=== PATIENT | male | born 1980 | race African-American/Black ===

== ENCOUNTER 2018-05-08 10:10 | Emergency (ER) | payer OTHER ==
[~2018-05-08] VITALS: Ht 182.9 cm; Wt 83.5 kg
--- NOTE | 2018-05-08 10:50 | RADIOLOGY REPORT ---
EXAMINATION: XR CHEST CLINICAL INFORMATION: Chest pain COMPARISON: 05/12/2016 TECHNIQUE: 2 views of the chest were obtained. FINDINGS: No significant abnormality is noted involving the heart, lungs, mediastinum, bony thorax or soft tissues. IMPRESSION: Unremarkable examination.
--- NOTE | 2018-05-08 10:55 | ED GENERAL ADULT ---
History of Present Illness General Chief Complaint: Chest Pain Stated Complaint: BIBA LEFT SIDED CHEST PAIN Source: patient Exam Limitations: no limitations Allergies Coded Allergies: No Known Allergies (05/08/18) Triage Note: 37 YO MALE BIBA FROM WORK FOR EVAL OF CHEST PRESSURE ON THE L SIDE. DENIES RADIATION OF PAIN. DENIES SOB, STATES PAIN IS WORSE WITH INSPIRATION. EKG IN PROGRESS Triage Nurses Notes Reviewed? yes HPI: Patient is a 37-year-old male with a past medical history of unprovoked pulmonary embolism and myocardial infarct in April 2016 for which he did not complete anticoagulation therapy. Patient is presented to the emergency department today with left-sided rib and chest pain lasting for approximately 1 hour, describes pain as "it is on the inside", has not has this type of pain before. Patient states he was thrown bottles, cans while at work which includes heavy lifting of up to 40 pounds when the pain started this morning, describes the pain as 10 out of 10, is sharp in nature and nonradiating and it worsens with deep respirations. States she has not tried anything for alleviation of pain. Denies diaphoresis, palpitations, dizziness, confusion. Patient states he is a current smoker smokes approximately 3 cigarettes per day, denies leg swelling or pain, history of rib fractures. Of note patient states he was seen last week at [facility] for having blood in his urine and semen, states workup there was negative including cystoscopy which was normal. (Marcelo COPELAND,[facility]) Vital Signs & Intake/Output Vital Signs & Intake/Output Vital Signs Date Time Temp Pulse Resp B/P B/P Pulse O2 O2 Flow FiO2 Mean Ox Delivery Rate 05/08 1231 97.8 47 18 158/90 98 Room Air 05/08 1057 100 Room Air 05/08 1017 98.4 50 18 150/83 98 Room Air Reconcile Medications Ibuprofen 600 MG TABLET 1 TAB PO TID Pain with food (Cesia COPELAND,[facility]) Past History Travel History Traveled to [place] past 21 day No Medical History Any Pertinent Medical History? 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 No (Nohemy Robertson MD) Review of Systems Review of Systems Constitutional: Denies: chills, diaphoresis, fever. EENTM: Denies: blurred vision, double vision. Respiratory: Denies: cough, hemoptysis, short of breath. Cardiovascular: Reports: chest pain. Denies: palpitations, peripheral edema. GI: Denies: abdominal pain, constipation, diarrhea. Musculoskeletal: Reports: see HPI, muscle pain. (Marcelo COPELAND,Nohemy) Physical Exam Physical Exam General Appearance: well developed/nourished, moderate distress Head: atraumatic Eyes: Bilateral: PERRL, EOMI. Neck: normal inspection, supple Respiratory: normal breath sounds, lungs clear Cardiovascular: regular rate/rhythm, normal peripheral pulses Peripheral Pulses: 4+ dorsalis pedis (R), 4+ dorsalis pedis (L) Gastrointestinal: normal bowel sounds, soft, non-tender, no organomegaly Back: normal inspection Core Measures ACS in differential dx? Yes CVA/TIA Diagnosis: No Sepsis Present: No Sepsis Focused Exam Completed? No (Marcelo COPELAND,Nohemy) Progress Differential Diagnoses I considered the following diagnoses in my evaluation of the patient: Pulmonary embolism ACS Muscular strain Rib Fracture Initial ED EKG: normal axis, normal intervals, normal p-waves, LVH Comments: Patient states he had a unprovoked pulmonary embolism and myocardial infarct in April 2016 for which he was hospitalized at [facility], will request to get documentation regarding visit and treatment. Patient states that he had the clot removed at that time, he did not continue with anticoagulation therapy, did not follow with a fire alarm dispatcher for a workup. (Marcelo COPELAND,Nohemy) Plan of Care: Orders Procedure Date/time Status Add-on Test (ER Only) 05/08 1206 Active URINE DRUG SCREEN FOR ER ONLY 05/08 1206 Active ETHANOL 05/08 1054 Complete Saline Lock 05/08 1026 Active TROPONIN LEVEL 05/08 1026 Complete LIPASE 05/08 1026 Complete D-DIMER 05/08 1026 Complete COMPREHENSIVE METABOLIC PANEL 05/08 1026 Complete CBC WITHOUT DIFFERENTIAL 05/08 1026 Complete EKG 05/08 1014 Active Laboratory Tests 05/08/18 1054: Anion Gap 10, Estimated GFR > 60, BUN/Creatinine Ratio 12.2, Glucose 86, Calcium 9.4, Total Bilirubin 0.6, AST 27, ALT 31, Alkaline Phosphatase 47, Troponin I < 0.01, Total Protein 6.9, Albumin 4.3, Globulin 2.6, Albumin/Globulin Ratio 1.7, Lipase 33, D-Dimer High Sensitivty < 200, CBC w Diff NO MAN DIFF REQ, RBC 4.62 L, MCV 89.3, MCH 29.4, MCHC 32.9 L, RDW 14.5, MPV 9.0, Gran % 53.7, Lymphocytes % 36.7, Monocytes % 6.5, Eosinophils % 1.9, Basophils % 1.2, Absolute Granulocytes 2.4, Absolute Lymphocytes 1.6, Absolute Monocytes 0.3, Absolute Eosinophils 0.1, Absolute Basophils 0.1, Serum Alcohol < 10.0 Comments: EKG: Sinus, rate of 49. Normal axis. Normal intervals. Lateral ST depression. No previous EKG for comparison. 37-year-old male presents with left sided rib pain ongoing for at least 40 minutes. He denies fever, chills, nausea, vomiting. He denies abdominal pain. He reports he has had chest pain in the past. He denies cough, phlegm. The patient denies any injury or rash. Physical exam is benign. 1207 patient's employer called requesting alcohol and drug test because the patient was at work when the pain started. The patient consented to this test. EKG is somewhat concerning, he denies any history of coronary artery disease, no previous EKG for comparison. No ST elevation AL seen on the EKG, we will get labs and evaluate the patient further. --- work up ,including CTA chest, negative. Presentation inconcsistent with ACS, PE- reproducible pain- likely muscular. Plan- pain control and follow up (Cesia COPELAND,[facility]) Departure Departure Disposition: HOME OR SELF CARE Condition: Stable Clinical Impression Primary Impression: Muscle strain of upper back Referrals: Timothy COPELAND,Luis F Magdaleno MD,Manjula Ryan Additional Instructions: Please take medications as advised, please follow-up with your PCP and casket liner. If the pain worsens or he had loss of strength please come back to emergency department. Please note that there might be incidental findings in your evaluation that are unrelated to the current emergency department visit. Please notify your primary care doctor about this emergency department visit in order to obtain and review all of the testing performed so that these incidental findings can be monitored as needed. If you had an x-ray performed, please understand that some fractures or other findings may not be seen on the initial set of x-rays. If your symptoms persist you might need a repeat set of x-rays to check for such a fracture. If you had a laceration evaluated, please understand that foreign bodies such as glass or wood may not be visible to the naked eye or on plain x-rays. If the wound becomes red, swollen, increasingly more painful or if there is any drainage from the wound, please have it reevaluated by a physician for the possibility of a retained foreign body. If you're unable to follow up as outlined in the discharge instructions please return to the emergency department. Thank you for choosing the [facility] Emergency Department for your care. It was a pleasure to serve you today. Departure Forms: Customer Survey General Discharge Information Prescriptions: Current Visit Scripts Ibuprofen 1 TAB PO TID #21 TAB with food (Nohemy Robertson MD) PA/ASSISTANT PLANT MANAGER Co-Sign Statement Statement: ED Attending supervision documentation- [x] I saw and evaluated the patient. I have also reviewed all the pertinent lab results and diagnostic results. I agree with the findings and the plan of care as documented in the PA's/ASSISTANT PLANT MANAGER's documentation. [] I have reviewed the ED Record and agree with the PA's/ASSISTANT PLANT MANAGER's documentation. [] Additions or exceptions (if any) to the PAs/ASSISTANT PLANT MANAGER's note and plan are summarized below: [] (Cesia COPELAND,[facility]) Critical Care Note Critical Care Note Critical Care Time: non-applicable (Nohemy Robertson MD)
[2018-05-08 11:07] LABS: ABSOLUTE BASOPHIL COUNT 0.1 /CUMM (0.0-0.2); ABSOLUTE EOSINOPHIL COUNT 0.1 /CUMM (0.0-0.7); ABSOLUTE GRANULOCYTE CT 2.4 /CUMM (1.4-6.5); ABSOLUTE LYMPH COUNT 1.6 /CUMM (1.2-3.4); ABSOLUTE MONOCYTE COUNT 0.3 /CUMM (0.10-0.60); BASOPHIL % 1.2 % (0.0-2.0); EOSINOPHIL % 1.9 % (0-5); GRANULOCYTE % 53.7 % (42.2-75.2); HEMATOCRIT 41.2 % (42-52); MEAN CORPUSCULAR HGB 29.4 PG (27.0-31.0); MEAN CORPUSCULAR HGB CONC 32.9 G/DL (33.0-37.0); MEAN CORPUSCULAR VOLUME 89.3 FL (80.0-94.0); RBC DISTRIBUTION WIDTH 14.5 % (11.5-14.5); RED BLOOD CELL CT 4.62 /CUMM (4.70-6.10); WHITE BLOOD CELL COUNT 4.5 /CUMM (4.8-10.8)
[2018-05-08 11:27] LABS: PLATELET COUNT 203 /CUMM (130-400)
[2018-05-08 12:31] VITALS: BP 158/90
--- NOTE | 2018-05-08 12:40 | CT SCAN REPORT ---
EXAMINATION: CT ANGIOGRAM OF THE CHEST WITH AND WITHOUT CONTRAST (CT PULMONARY ANGIOGRAM FOR PE) CLINICAL INFORMATION: Left-sided chest pain COMPARISON: None TECHNIQUE: Prior to contrast administration, noncontrast localization images were obtained. Subsequently, multidetector volumetric imaging was performed from the thoracic inlet to below the diaphragms following the administration of 98 mL Optiray 320 intravenous contrast. No contrast reaction reported. Sagittal, coronal, and MIP oblique sagittal reformatted images were obtained on the CT workstation, uploaded to PACS, and reviewed. Total exam dose-length product 434 mGy-cm. FINDINGS: QUALITY OF STUDY/CONTRAST BOLUS: Satisfactory PULMONARY ARTERIES: No central or segmental pulmonary emboli. 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 THORACIC AORTA: No aneurysm or dissection. LUNG: No focal consolidation, nodules or masses. PLEURA: No pleural effusion or pneumothorax. MEDIASTINUM: Normal heart size. No pericardial effusion. No hilar or mediastinal lymphadenopathy. No evidence of septal bowing or right heart strain. CHEST WALL/AXILLA: No axillary or internal mammary lymphadenopathy. OSSEOUS STRUCTURES: No acute or suspicious osseous abnormality. UPPER ABDOMEN: Unremarkable. There is mild reflux of contrast into the hepatic veins suggestive of elevated right heart pressures. IMPRESSION: 1. No evidence of pulmonary embolism. 2. 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 3. Reflux of contrast into the hepatic veins suggest elevated right heart pressures, however there is no leftward septal bowing. VTE: negative
[2018-05-08] MEDS ORDERED: IBUPROFEN600 M1 PO (13:26)
== END 2018-05-08 13:35 ==
LOC: ERH 10:10
PROVIDERS: Emergency Medicine
DX: S29.012A Strain of muscle and tendon of back wall of thorax, initial encounter (principal); R07.9 Chest pain, unspecified; X58.XXXA Exposure to other specified factors, initial encounter; Y92.9 Unspecified place or not applicable; Y93.9 Activity, unspecified; I26.99 Other pulmonary embolism without acute cor pulmonale; F17.210 Nicotine dependence, cigarettes, uncomplicated
CPT/HCPCS: 71046; 80307; 93005; 93010; G0480